=== PATIENT | female | born 1945 | race Caucasian/White ===

== ENCOUNTER 2017-06-08 15:57 | Emergency (ER) | payer MEDICARE, MEDICAID ==
[~2017-06-08] VITALS: Ht 152.4 cm; Wt 64.9 kg
[2017-06-08] MEDS ORDERED: VAGIFEM10 MCG VAGINAL (16:09)
[2017-06-08] MEDS ORDERED: BUSPIRONE HCL5 MG PO (16:09)
[2017-06-08] MEDS ORDERED: BETAMETHASONE D15 G1 TOP (16:10)
[2017-06-08] MEDS ORDERED: LOVASTATIN20 MG PO (16:10)
[2017-06-08] MEDS ORDERED: LISINOPRIL20 MG PO (16:11)
[2017-06-08] MEDS ORDERED: OMEPRAZOLE20 MG PO (16:11)
[2017-06-08] MEDS ORDERED: LEVOTHYROXINE75 MCG PO (16:12)
[2017-06-08] MEDS ORDERED: KEFLEX500 MG PO (18:04)
== END 2017-06-08 18:30 | disposition home or self-care (01) ==
LOC: ED 15:57
PROC: 0HDRXZZ Extraction of Toe Nail, External Approach (ICD-10-PCS; principal; 2017-06-08)
DX: Q84.6 Other congenital malformations of nails (principal); L08.89 Other specified local infections of the skin and subcutaneous tissue; I10 Essential (primary) hypertension; E78.00 Pure hypercholesterolemia, unspecified; K21.9 Gastro-esophageal reflux disease without esophagitis; F41.9 Anxiety disorder, unspecified; Z90.710 Acquired absence of both cervix and uterus; Z88.5 Allergy status to narcotic agent; Z79.899 Other long term (current) drug therapy
CPT/HCPCS: 11730; 99283